=== PATIENT | male | born 1995 | race American Indian/Alaskan Native ===

== ENCOUNTER 2019-03-05 15:30 | Emergency (ER) | payer OTHER ==
--- NOTE | 2019-03-05 16:26 | Emergency Department Report ---
Blank Doc - Documentation Documentation: Reports that injured lt middle finger 02/16/2019 after work injury and now still with stitched , swelling drainage, and fever to finger. Procedure done at [facility]. reports pain to hand and radiating to shoulder. Pain 7/10 worst with movement.Went today and was sent to ED . Reports middle finger bent and limited ROM Noted stitches , swelling and TTP left middle finger MIP area. Deformity noted with painful movement TD up to date 2018 Xray, Remove stiches
--- NOTE | 2019-03-05 17:24 | XRay Report ---
XR hand 3+V LT INDICATION / CLINICAL INFORMATION: Left hand pain. COMPARISON: None available. FINDINGS: BONES/JOINT(S): No acute fracture or subluxation. No significant degenerative changes. No aggressive appearing bone lesions. No radiographic evidence of osteomyelitis. SOFT TISSUES: Moderate soft tissue swelling along the dorsal aspect of the long finger. No radiopaque foreign bodies. ADDITIONAL FINDINGS: None. Signer Name: John Almanzar MD Signed: 03/05/2019 5:20 PM Workstation Name: [id number]
[2019-03-05] MEDS ORDERED: TRIPLE ANTIBIOTIC TP ONE (18:05)
[2019-03-05] MEDS ORDERED: IBUPROFEN PO ONE (18:05)
[2019-03-05] MEDS ORDERED: ANCEF IM ONE (18:05)
--- NOTE | 2019-03-05 18:08 | Emergency Department Report ---
Abscess Boil HPI - HPI Chief Complaint: Extremity Injury, Upper Stated Complaint: INDEX FINGER Time Seen by Provider: 03/05/19 16:18 Duration: >1 Week Severity: Mild History: Yes Pain, Yes Purulent Drainage, Yes Previous History, No Fever, No Numbness, No Foreign Body, No Insect Bite HPI: Patient is a 23-year-old male who comes to the ER and sent by [facility] today for an infection over his middle finger MIP joint. He has sutures in place now since February 16. It is now March 05. He states that every time he was told to get the sutures out he was scheduled to work. Now his finger is swollen, painful and draining fluid. Patient states his teeth Is up-to-date. He states he was never placed on antibiotics. Patient can move the finger but is limited by pain. Home Medications: Previous Rx's Medication Instructions Recorded Last Taken Type cephALEXin [Keflex] 500 mg PO Q6HR #40 capsule 03/05/19 Unknown Rx Allergies/Adverse Reactions: Allergies Allergy/AdvReac Type Severity Reaction Status Date / Time No Known Allergies Allergy Verified 03/05/19 15:34 ED Review of Systems ROS: Stated complaint: INDEX FINGER Other details as noted in HPI Comment: All other systems reviewed and negative ED Past Medical Hx - Past Medical History Previous Medical History?: No - Surgical History Past Surgical History?: Yes Additional Surgical History: abd, spine, leg - Family History Family history: no significant - Social History Smoking Status: Current Every Day Smoker - Medications Home Medications: Home Medications Medication Instructions Recorded Confirmed Last Taken Type cephALEXin [Keflex] 500 mg PO Q6HR #40 capsule 03/05/19 Unknown Rx ED Abscess Boil Physical Exam - Exam General: Vital signs noted. No distress. Alert and acting appropriately. Exam: WDWN patient in NAD. VS per RN flow sheet. Alert and oriented to person, place and time. S1-S2. No S3 or S4. No systolic or diastolic murmur. No JVD. No pitting edema. Lungs clear to auscultation bilaterally anteriorly and posteriorly. Abdomen soft nontender bowel sounds X4. Moves all extremities well. Mood and affect appropriate. Patient has 3 sutures in his middle finger over the middle joint. The finger is swollen. Patient reports pain. Sutures were removed. When the sutures removed the edges remained approximated. However, the wound did start to drain. The drainage is yellow in nature. ED Course Vital Signs 03/05/19 16:17 Temperature 98.7 F Pulse Rate 82 Respiratory 18 Rate Blood Pressure 150/93 O2 Sat by Pulse 98 Oximetry Critical care attestation.: If time is entered above; I have spent that time in minutes in the direct care of this critically ill patient, excluding procedure time. ED Medical Decision Making - Radiology Data Radiology results: report reviewed, image reviewed - Medical Decision Making SUTURES REMOVED- 3 WOUND CARE guided. Patient has been given written and verbal instructions on how to care for his finger. ANCEF IM MOTRIN PO FOR PAIN XRAY NOTED TDAP IS UTD She is being discharged to home with follow-up with [facility] in the a.m. It is imperative that he get his antibiotics. He states he cannot afford them. Since this was an on-the-job injury that should provide him with his antibiotics. Patient should follow-up with an orthopedic doctor next week. I'm concerned that the infection is overlying a joint. I discussed at length with the patient the risk of this wound popping open given the infection. If this occurs and will need to heal by secondary intention and cannot be resutured. But the stitches have been in now for over 3 weeks and they needed to come out and we needed to liberate the wound from the infectious material. Vital Signs 03/05/19 16:17 Temperature 98.7 F Pulse Rate 82 Respiratory 18 Rate Blood Pressure 150/93 O2 Sat by Pulse 98 Oximetry - Differential Diagnosis INFECTION OF WOUND ED Disposition Clinical Impression: Visit for suture removal, Wound infection Disposition: DC- TO HOME OR SELFCARE Is pt being admited?: No Does the pt Need Aspirin: No Condition: Stable Instructions: Wound Infection (ED) Additional Instructions: TODAY SUTURES WERE REMOVED XRAY COMPLETED WOUND CARE PROVIDED ANCEF IM GIVEN MEDICATED FOR PAIN YOU NEED TO 1. FOLLOW UP WITH WORK IN AM TO BE SURE YOU GET YOUR ANTIBIOTICS WHICH NEED TO START IN THE AM 2. TAKE MOTRIN OR TYLENOL FOR PAIN 3. CHANGE DRESSING TWICE PER DAY. REMOVE OUTER BULKY DRESSING - LEAVE THE STRIPS IN PLACE AND ALLOW THEM TO FALL OFF ON THEIR OWN WASH WITH SOAP AND WATER- NO PEROXIDE- NO OINTMENTS THEN REAPPLY A BULKY DRESSING (YOUR JOB SINCE THE INJURY WAS AT WORK SHOULD PROVIDE YOU THE DRESSING SUPPLIES) 4. DO NOT BEND THAT FINGER FOR A FEW DAYS. DUE TO THE INFECTION YOU ARE AT RISK OF POPPING THE SUTURES OPEN. 5. YOU SHOULD SEE MD ON FRIDAY TO REEVALUATE- ORTHOPEDIC MD WOULD BE BEST DUE TO THE INFECTION BEING OVER A JOINT. Prescriptions: cephALEXin [Keflex] 500 mg PO Q6HR #40 capsule Referrals: ALYCE CHUN MD [Staff Physician] - 3-5 Days Time of Disposition: 18:09 - Laceration /Wound Repair FINGER Wound Location: upper extremity Sterile Dressing Applied?: Yes Progress: SUTURES REMOVED WOUND CLEANED STERI STRIPS APPLIED DRESSING APPLIED
[2019-03-05 18:47] VITALS: BP 146/90
== END 2019-03-05 18:46 | disposition home or self-care (01) ==
LOC: ED 15:30
DX: T81.49XA Infection following a procedure, other surgical site, initial encounter (principal); F17.200 Nicotine dependence, unspecified, uncomplicated; Z79.899 Other long term (current) drug therapy; Y92.89 Other specified places as the place of occurrence of the external cause
CPT/HCPCS: 73130; 96372; 99283; J0690; A6250

== ENCOUNTER 2021-07-06 13:38 | Emergency (ER) | payer SELFPAY ==
[2021-07-06] MEDS ORDERED: IBUPROFEN 600 MG TAB PO ONE (15:08)
--- NOTE | 2021-07-06 15:14 | Emergency Department Report ---
ED ENT HPI - General Chief complaint: Earache Stated complaint: RGHT EAR BLEEDING Time Seen by Provider: 07/06/21 15:07 Source: patient Mode of arrival: Ambulatory Limitations: No Limitations - History of Present Illness Initial comments: The patient was evaluated in the emergency department for symptoms described in the history of present illness. He/she was evaluated in the context of the global COVID-19 pandemic, which necessitated consideration that the patient might be at risk for infection with the virus that causes COVID-19. Institutional protocols and algorithms that pertain to the evaluation of patients at risk for COVID-19 are in a state of rapid change based on information released by regulatory bodies including the CDC and federal and state organizations. These policies and algorithms were followed during the patient's care in the emergency department. Please note that these policies, procedures and recommendations changed on a rapid basis. 26-year-old -[place] male presents to the emergency room for an abrupt right ear pain with bleeding from the ear. Patient states that he has been suffering from a cold when he sneezed this morning and felt like a speaker had burst into his ear. Patient states then he started having bleeding from the ear. Patient states the pain is a 10 out of 10. He denies any known drug allergies denies any trauma. No dizziness no room is spinning. States that he had put a Q-tip in to absorb the blood. MD complaint: ear pain (Right ear) -: This morning Location: R ear Severity: severe Severity scale (0 -10): 10 Quality: stabbing, sharp Consistency: constant Improves with: none Worsens with: swallowing, eating, movement - Related Data Previous Rx's Medication Instructions Recorded Last Taken Type cephALEXin [Keflex] 500 mg PO Q6HR #40 capsule 03/05/19 Unknown Rx Amoxicillin/K Clav Tab [Augmentin 1 tab PO Q12HR 7 Days #14 tab 07/06/21 Unknown Rx 875 mg] Ibuprofen [Motrin 800 MG tab] 800 mg PO Q8HR PRN #21 tablet 07/06/21 Unknown Rx traMADoL [Ultram 50 MG tab] 50 mg PO Q6HR PRN #12 tablet 07/06/21 Unknown Rx Allergies Allergy/AdvReac Type Severity Reaction Status Date / Time No Known Allergies Allergy Verified 03/05/19 15:34 ED Dental HPI - General Chief complaint: Earache Stated complaint: RGHT EAR BLEEDING Time Seen by Provider: 07/06/21 15:07 Source: patient Mode of arrival: Ambulatory Limitations: No Limitations - Related Data Previous Rx's Medication Instructions Recorded Last Taken Type cephALEXin [Keflex] 500 mg PO Q6HR #40 capsule 03/05/19 Unknown Rx Amoxicillin/K Clav Tab [Augmentin 1 tab PO Q12HR 7 Days #14 tab 07/06/21 Unknown Rx 875 mg] Ibuprofen [Motrin 800 MG tab] 800 mg PO Q8HR PRN #21 tablet 07/06/21 Unknown Rx traMADoL [Ultram 50 MG tab] 50 mg PO Q6HR PRN #12 tablet 07/06/21 Unknown Rx Allergies Allergy/AdvReac Type Severity Reaction Status Date / Time No Known Allergies Allergy Verified 03/05/19 15:34 ED Review of Systems ROS: Stated complaint: RGHT EAR BLEEDING Other details as noted in HPI Comment: All other systems reviewed and negative ED Past Medical Hx - Past Medical History Previous Medical History?: No Additional medical history: denies - Surgical History Past Surgical History?: Yes Additional Surgical History: abd, spine, leg - Social History Smoking Status: Current Every Day Smoker - Medications Home Medications: Home Medications Medication Instructions Recorded Confirmed Last Taken Type cephALEXin [Keflex] 500 mg PO Q6HR #40 capsule 03/05/19 Unknown Rx Amoxicillin/K Clav Tab [Augmentin 1 tab PO Q12HR 7 Days #14 tab 07/06/21 Unknown Rx 875 mg] Ibuprofen [Motrin 800 MG tab] 800 mg PO Q8HR PRN #21 tablet 07/06/21 Unknown Rx traMADoL [Ultram 50 MG tab] 50 mg PO Q6HR PRN #12 tablet 07/06/21 Unknown Rx ED Physical Exam - General Limitations: No Limitations General appearance: alert, in no apparent distress, other (Appears to be uncomfortable) - Head Head exam: Present: atraumatic, normocephalic - Eye Eye exam: Present: normal appearance - Expanded ENT Exam Expanded TM/Canal exam: Perforation: Right TM, Canal Discharge: Right TM (Blood in canal) Mouth exam: Present: normal external inspection - Neck Neck exam: Present: normal inspection, full ROM - Respiratory Respiratory exam: Absent: respiratory distress, accessory muscle use - Cardiovascular Cardiovascular Exam: Present: regular rate - Extremities Exam Extremities exam: Present: normal inspection, full ROM - Back Exam Back exam: Present: normal inspection, full ROM - Neurological Exam Neurological exam: Present: alert, oriented X3, normal gait - Psychiatric Psychiatric exam: Present: normal affect, normal mood - Skin Skin exam: Present: warm, dry, intact, normal color. Absent: rash ED Course Vital Signs 07/06/21 14:02 Temperature 98.4 F Pulse Rate 74 Respiratory 15 Rate Blood Pressure 146/108 [Right] O2 Sat by Pulse 97 Oximetry ED Medical Decision Making - Medical Decision Making 26-year-old -[place] male presents to the emergency room for an abrupt right ear pain with bleeding from the ear. Patient states that he has been suffering from a cold when he sneezed this morning and felt like a speaker had burst into his ear. Patient states then he started having bleeding from the ear. Patient states the pain is a 10 out of 10. He denies any known drug allergies denies any trauma. No dizziness no room is spinning. States that he had put a Q-tip in to absorb the blood. Patient will be given ibuprofen 600 mg now. 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 Critical care attestation.: If time is entered above; I have spent that time in minutes in the direct care of this critically ill patient, excluding procedure time. ED Disposition Clinical Impression: Perforation of right tympanic membrane Disposition: HOME / SELF CARE / HOMELESS Is pt being admited?: No Does the pt Need Aspirin: No Condition: Stable Instructions: Eardrum Rupture, Mgth-nh-Avkt Prescriptions: Amoxicillin/K Clav Tab [Augmentin 875 mg] 1 tab PO Q12HR 7 Days #14 tab Ibuprofen [Motrin 800 MG tab] 800 mg PO Q8HR PRN #21 tablet PRN Reason: Pain , Severe (7-10) traMADoL [Ultram 50 MG tab] 50 mg PO Q6HR PRN #12 tablet PRN Reason: Pain Referrals: JAZMYN PERALTA MD [Referring] - 3-5 Days Forms: Work/School Release Form(ED)
[2021-07-06 15:41] VITALS: BP 157/105
== END 2021-07-06 15:41 | disposition home or self-care (01) ==
LOC: ED 13:38
DX: H72.91 Unspecified perforation of tympanic membrane, right ear (principal); F17.200 Nicotine dependence, unspecified, uncomplicated; Z98.890 Other specified postprocedural states; Z79.899 Other long term (current) drug therapy
CPT/HCPCS: 99282